=== PATIENT | female | born 1995 | race African-American/Black ===

== ENCOUNTER 2018-10-27 07:53 | Emergency (ER) | payer OTHER ==
[~2018-10-27] VITALS: Ht 165.1 cm; Wt 59.0 kg
[2018-10-27 08:17] LABS: URINE BILIRUBIN NEGATIVE (Negative); URINE BLOOD 3+ (Negative); URINE CLARITY CLEAR; URINE COLOR YELLOW; URINE GLUCOSE-RANDOM* NEGATIVE (Negative); URINE KETONES NEGATIVE (Negative); URINE LEUKOCYTES-REFLEX NEGATIVE (Negative); URINE NITRITE-REFLEX NEGATIVE (Negative); URINE PROTEIN (DIPSTICK) NEGATIVE (Negative); URINE SPECIFIC GRAVITY <= 1.005 (1.005-1.035); URINE UROBILINOGEN 0.2 E.U./dl (0.2-1.0)
[2018-10-27 08:21] LABS: BACTERIA-REFLEX None Seen /HPF (None Seen); CASTS None Seen /LPF (None Seen); CRYSTALS None Seen /LPF (None Seen); SQUAMOUS 0-3 Few /LPF (0-3); URINE RBC 0-2 Rare /HPF (0-2); URINE WBC-REFLEX None Seen /HPF (0-5)
[2018-10-27 08:39] LABS: ABSOLUTE NEUTROPHILS 4.5 thou/uL (1.4-8.2); BASOPHILS 0.4 % (0.0-2.0); EOSINOPHILS 2.3 % (0.0-3.0); HEMATOCRIT 43.1 % (37.0-47.0); HEMOGLOBIN 14.3 gm/dL (12.0-15.0); LYMPHOCYTES 21.2 % (24.0-44.0); MCH 30.2 pg (26.0-34.0); MCHC 33.3 g/dL (28.0-37.0); MCV 90.7 fL (80.0-100.0); MONOCYTES 7.7 % (1.0-8.0); PLATELET COUNT 212 thou/uL (150-400); POLYS 68.4 % (36.0-66.0); RBC 4.75 mil/uL (4.20-5.00); RDW 13.1 % (10.5-14.5); WBC 6.6 thou/uL (4.0-11.0)
[2018-10-27 08:46] LABS: CALCIUM 9.3 mg/dL (8.5-10.1); CREATININE 0.8 mg/dL (0.6-1.0); POTASSIUM 3.6 mmol/L (3.5-5.1)
[2018-10-27 08:52] LABS: ALBUMIN 4.4 g/dL (3.4-5.0); TOTAL BILIRUBIN 0.6 mg/dL (<0.1-1.0); TOTAL PROTEIN 7.9 g/dL (6.4-8.2)
[2018-10-27] MEDS ORDERED: TRAMADOL 50 MG50 MG PO (09:25)
[2018-10-27] MEDS ORDERED: NAPROSYN500 MG PO (09:25)
[2018-10-27 10:11] VITALS: BP 131/77
== END 2018-10-27 10:12 | disposition home or self-care (01) ==
LOC: ER 07:53
PROVIDERS: Emergency Medicine
DX: N94.6 Dysmenorrhea, unspecified (principal); N93.8 Other specified abnormal uterine and vaginal bleeding; R10.30 Lower abdominal pain, unspecified; K21.9 Gastro-esophageal reflux disease without esophagitis